=== PATIENT | female | born 1975 | race Caucasian/White ===

== ENCOUNTER 2019-08-25 08:05 | Emergency (ER) | payer MEDICAID ==
[~2019-08-25] VITALS: Ht 157.5 cm; Wt 63.5 kg
[2019-08-25 08:06] VITALS: BP 152/83
[2019-08-25] MEDS ORDERED: LORazepam 0.5 MG TAB PO ONE (08:25)
[2019-08-25 09:27] VITALS: BP 135/79
== END 2019-08-25 09:27 | disposition home or self-care (01) ==
LOC: MED 08:05
DX: F41.9 Anxiety disorder, unspecified (principal); R07.2 Precordial pain
CPT/HCPCS: 36415; 81002; 81025; 84484; 93005; 99284

== ENCOUNTER 2019-10-22 22:23 | Emergency (ER) | payer MEDICAID, OTHER ==
[~2019-10-22] VITALS: Ht 157.5 cm; Wt 65.8 kg
[2019-10-22 22:26] VITALS: BP 153/80
[2019-10-22] MEDS ORDERED: LIDOCAINE VISCOUS 2% 20 ML UDC PO ONE (23:05)
[2019-10-23 00:10] VITALS: BP 153/80
== END 2019-10-23 00:10 | disposition home or self-care (01) ==
LOC: MED 22:23
DX: F45.8 Other somatoform disorders (principal)
CPT/HCPCS: 70490; 99284

== ENCOUNTER 2021-04-09 22:13 | Emergency (ER) | payer OTHER ==
[~2021-04-09] VITALS: Ht 157.5 cm; Wt 66.2 kg
[2021-04-09 22:21] VITALS: BP 133/85
--- NOTE | 2021-04-09 22:27 | NUR ---
PT TAKEN TO BED 1
--- NOTE | 2021-04-09 23:13 | NUR ---
Dr. Thomas examining patient.
[2021-04-09] MEDS ORDERED: ASPIRIN 325 MG TAB PO ONE (23:25)
[2021-04-09 23:42] LABS: BASOPHILS % (AUTO) 0.4 % (0.0-2.0); EOSINOPHILS # (AUTO) 0.7 K/uL (0-0.4); EOSINOPHILS % (AUTO) 5.8 % (0.0-4.0); HEMOGLOBIN 12.9 g/dL (12.0-16.0); LYMPHOCYTES # (AUTO) 1.6 K/uL (2.5-16.5); LYMPHOCYTES % (AUTO) 13.7 % (20.5-51.1); MEAN CORPUSCULAR HEMOGLOBIN 29 pg (27-31); MEAN CORPUSCULAR HGB CONC 35 g/dL (33-37); MEAN CORPUSCULAR VOLUME 83.7 fL (80-94); MONOCYTES % (AUTO) 8.9 % (1.7-9.3); NEUTROPHILS # (AUTO) 8.4 K/uL (1.8-7.7); NEUTROPHILS % (AUTO) 71.2 % (42.2-75.2); PLATELET COUNT (AUTO) 288 K/uL (140-450); RED BLOOD CELL COUNT(AUTO) 4.43 MIL/uL (4.20-5.40); RED CELL DISTRIBUTION WIDTH 13.4 % (11.6-13.7); WHITE BLOOD COUNT (AUTO) 11.7 K/uL (4.8-10.8)
[2021-04-09 23:55] LABS: ANION GAP 14.6 (8-16); CARBON DIOXIDE 26.7 mmol/L (21-32); CREATININE 0.9 mg/dL (0.6-1.3); POTASSIUM 3.3 mmol/L (3.5-5.1); TOTAL BILIRUBIN 0.8 mg/dL (0.0-1.0)
--- NOTE | 2021-04-10 00:53 | NUR ---
Patient discharged with v/s stable. Written and verbal after care instructions given and explained. Patient verbalized understanding. Ambulatory with steady gait. ID band removed. All questions addressed prior to discharge. Advised to follow up with PMD.
[2021-04-10 00:54] VITALS: BP 125/79
== END 2021-04-10 00:54 | disposition home or self-care (01) ==
LOC: MED 22:13
DX: R07.89 Other chest pain (principal); R05.9 Cough, unspecified; I10 Essential (primary) hypertension; Z98.890 Other specified postprocedural states
CPT/HCPCS: 36415; 71045; 80053; 84484; 85025; 93005; 99285; Q0092

== ENCOUNTER 2021-07-21 07:59 | Emergency (ER) | payer OTHER ==
[~2021-07-21] VITALS: Ht 157.5 cm; Wt 65.3 kg
[2021-07-21 08:02] VITALS: BP 133/85
--- NOTE | 2021-07-21 08:04 | NUR ---
PT BIBA TAKEN TO ER BED 4.
--- NOTE | 2021-07-21 08:04 | NUR ---
46 Y/O F BIBA FROM HOME C/O DIZZINESS, LEFT CHEST PAIN RADIATING TO LEFT ARM 30 MINS AGO. PT STATES SHE TOOK ASA X2 AT 0640 AND 0730 PTO. PT RECIEVED SL NITRO IN ROUTE TO [facility] [employer]. PMH: HTN
[2021-07-21] MEDS ORDERED: KETOROLAC 30 MG/ML VIAL IVP ONE (08:20)
[2021-07-21 09:37] LABS: BASOPHILS % (AUTO) 0.6 % (0.0-2.0); EOSINOPHILS # (AUTO) 0.3 K/uL (0-0.4); EOSINOPHILS % (AUTO) 4.2 % (0.0-4.0); HEMATOCRIT 36.4 % (36-48); HEMOGLOBIN 12.7 g/dL (12.0-16.0); LYMPHOCYTES # (AUTO) 1.9 K/uL (2.5-16.5); LYMPHOCYTES % (AUTO) 30.5 % (20.5-51.1); MEAN CORPUSCULAR HEMOGLOBIN 29 pg (27-31); MEAN CORPUSCULAR HGB CONC 35 g/dL (33-37); MEAN CORPUSCULAR VOLUME 83.2 fL (80-94); MONOCYTES # (AUTO) 0.4 K/uL (0.8-1.0); MONOCYTES % (AUTO) 7.2 % (1.7-9.3); NEUTROPHILS # (AUTO) 3.5 K/uL (1.8-7.7); NEUTROPHILS % (AUTO) 57.5 % (42.2-75.2); PLATELET COUNT (AUTO) 291 K/uL (140-450); RED BLOOD CELL COUNT(AUTO) 4.38 MIL/uL (4.20-5.40); WHITE BLOOD COUNT (AUTO) 6.1 K/uL (4.8-10.8)
[2021-07-21 09:54] LABS: ALBUMIN 3.8 g/dL (3.4-5.0); ANION GAP 12.3 (8-16); CARBON DIOXIDE 27.3 mmol/L (21-32); CREATININE 0.7 mg/dL (0.6-1.3); POTASSIUM 3.6 mmol/L (3.5-5.1); TOTAL BILIRUBIN 0.4 mg/dL (0.0-1.0)
[2021-07-21] MEDS ORDERED: NAPR-1704 PO (10:40)
[2021-07-21 10:45] VITALS: BP 122/69
== END 2021-07-21 10:55 | disposition home or self-care (01) ==
LOC: MED 07:59
DX: R07.89 Other chest pain (principal); R42 Dizziness and giddiness; I10 Essential (primary) hypertension; Z79.899 Other long term (current) drug therapy
CPT/HCPCS: 36415; 71045; 80053; 83880; 84484; 85025; 93005; 96374; 99285; J1885

== ENCOUNTER 2022-02-24 00:08 | Emergency (ER) | payer OTHER ==
[~2022-02-24] VITALS: Ht 157.5 cm; Wt 64.4 kg
[~2022-02-24 00:08] MED LIST: NAPR-1704 PO
[2022-02-24 00:21] VITALS: BP 137/75
--- NOTE | 2022-02-24 00:27 | NUR ---
TO LOBBY FOLLOWING TRIAGE
--- NOTE | 2022-02-24 01:18 | NUR ---
Dr. Abdi examining patient.
[2022-02-24] MEDS ORDERED: ALUMINUM HYD/MAG/SIMETHICONE 30 ML, DICYCLOMINE HCL LIQUID 20 MG, LIDOCAINE VISCOUS 2% ... PO ONE ×3 (01:30)
[2022-02-24] MEDS ORDERED: ALUMINUM HYD/MAG/SIMETHICONE 30 ML UDC PO ONE (01:30)
[2022-02-24 01:45] LABS: BASOPHILS # (AUTO) 0.1 K/uL (0.00-0.22); BASOPHILS % (AUTO) 0.7 % (0.0-2.0); EOSINOPHILS # (AUTO) 0.3 K/uL (0-0.4); EOSINOPHILS % (AUTO) 3.3 % (0.0-4.0); LYMPHOCYTES % (AUTO) 33.2 % (20.5-51.1); MEAN CORPUSCULAR HEMOGLOBIN 29 pg (27-31); MEAN CORPUSCULAR HGB CONC 34 g/dL (33-37); MEAN CORPUSCULAR VOLUME 84.8 fL (80-94); MONOCYTES # (AUTO) 0.8 K/uL (0.8-1.0); MONOCYTES % (AUTO) 8.4 % (1.7-9.3); NEUTROPHILS % (AUTO) 54.4 % (42.2-75.2); PLATELET COUNT (AUTO) 312 K/uL (140-450); RED BLOOD CELL COUNT(AUTO) 4.49 MIL/uL (4.20-5.40); RED CELL DISTRIBUTION WIDTH 12.8 % (11.6-13.7); WHITE BLOOD COUNT (AUTO) 9.1 K/uL (4.8-10.8)
[2022-02-24 02:02] LABS: ALBUMIN 4.4 g/dL (3.4-5.0); ANION GAP 13.4 (8-16); CARBON DIOXIDE 27.9 mmol/L (21-32); CREATININE 0.9 mg/dL (0.6-1.3); POTASSIUM 3.3 mmol/L (3.5-5.1); TOTAL BILIRUBIN 0.3 mg/dL (0.0-1.0)
[2022-02-24] MEDS ORDERED: KETOROLAC 15 MG/ML VIAL IM ONE (04:45)
[2022-02-24] MEDS ORDERED: ACETAMINOPHEN 325 MG TAB PO ONE (04:45)
[2022-02-24 05:20] VITALS: BP 137/75
--- NOTE | 2022-02-24 05:20 | NUR ---
Patient discharged with v/s stable. Written and verbal after care instructions given and explained. Patient verbalized understanding. Ambulatory with steady gait. All questions addressed prior to discharge. Advised to follow up with PMD.
== END 2022-02-24 05:20 | disposition home or self-care (01) ==
LOC: MED 00:08
DX: R10.13 Epigastric pain (principal); R10.12 Left upper quadrant pain; I10 Essential (primary) hypertension; Z79.899 Other long term (current) drug therapy
CPT/HCPCS: 36415; 74176; 76830; 80053; 81002; 81025; 83690; 85025; 96372; 99284; J1885; Q0092

== ENCOUNTER 2022-09-08 18:22 | Emergency (ER) | payer OTHER ==
[~2022-09-08] VITALS: Ht 157.5 cm; Wt 65.3 kg
[2022-09-08 18:28] VITALS: BP 144/77
--- NOTE | 2022-09-08 21:30 | NUR ---
PT LWBS PER ERMD
== END 2022-09-08 21:30 | disposition left against medical advice (07) ==
LOC: MED 18:22
DX: R07.9 Chest pain, unspecified (principal); Z53.21 Procedure and treatment not carried out due to patient leaving prior to being seen by health care provider
CPT/HCPCS: 93005; 99281